=== PATIENT | female | born 1970 | race Caucasian/White ===

== ENCOUNTER → 2023-11-07 08:14 | Outpatient (REF) | payer BC, SELFPAY | LOC: HWRAD 08:14 | PROVIDERS: ATTENDING PHYSICIAN Physician Assistant | DX: K21.9 Gastro-esophageal reflux disease without esophagitis (principal); R14.0 Abdominal distension (gaseous); R19.4 Change in bowel habit; Z80.0 Family history of malignant neoplasm of digestive organs | CPT/HCPCS: 74177; Q9967 ==

== ENCOUNTER → 2024-07-26 15:06 | Outpatient (REF) | payer BC, SELFPAY | LOC: HWRAD 15:06 | PROVIDERS: ATTENDING PHYSICIAN Physician Assistant Medical; FAMILY PHYSICIAN Family Medicine | DX: R55 Syncope and collapse (principal); R07.81 Pleurodynia | CPT/HCPCS: 70450; 71101 ==

== ENCOUNTER → 2024-08-06 13:37 | Outpatient (REF) | payer BC, SELFPAY | LOC: HWRAD 13:37 | PROVIDERS: ATTENDING PHYSICIAN Family Medicine | DX: Z78.0 Asymptomatic menopausal state (principal) | CPT/HCPCS: 77080 ==